=== PATIENT | male | born 1930 | race Caucasian/White ===

== ENCOUNTER → 2020-09-07 | Outpatient (CLI) | payer OTHER ==
--- NOTE | 2020-09-28 14:18 | ECHO ---
DATE OF PROCEDURE: 09/07/2020 Age: 89 Gender: Male PATIENT LOCATION: Outpatient. REASON FOR STUDY: Shortness of breath. 2D MEASUREMENTS: IVS 1.2 cm LV 3.5 cm LVPW 1.2 cm LA 4.1 cm Aorta 3.2 cm IVC 1.5 cm DOPPLER MEASUREMENT Peak velocity across the aortic valve 0.9 m/s Peak velocity across the LVOT 0.7 m/s Mitral E 0.64 Mitral A 0.74 with a ratio of 0.86 2D COMMENTS: 1. Normal left ventricular size, wall thickness, and normal global left ventricular systolic function. The estimated left ventricular systolic ejection fraction is 65 to 70%. 2. Mildly enlarged left atrium. The right atrium and the right ventricle were not well visualized. 3. The atrial septum did not reveal any defect or shunt. 4. Normal aortic root. 5. No pericardial effusion seen. 6. Mildly calcified aortic valve with normal leaflet excursion. Normal mitral valve, tricuspid valve, and pulmonic valve. The proximal pulmonary artery branches were not well visualized. 7. The inferior vena cava was normal in size, central venous pressure was most likely normal. Doppler detects trace aortic regurgitation, mild to moderate mitral regurgitation, and mild pulmonic regurgitation. No significant tricuspid regurgitation detected. Abnormal relaxation pattern was noted across the mitral valve leaflets as well as the mitral valve annulus consistent with features of grade 1 left ventricular diastolic dysfunction. IMPRESSION: 1. Normal global left ventricular systolic function. There were some features of left ventricular diastolic dysfunction manifested by abnormal relaxation. 2. Aortic valve sclerosis with trace aortic regurgitation but no aortic stenosis. 3. Mild to moderate mitral regurgitation. The left atrium is mildly enlarged. 4. Mild pulmonic regurgitation. MTDD
== END ==
LOC: M CARPUL 08:44
DX: R06.02 Shortness of breath (principal); R42 Dizziness and giddiness; I34.0 Nonrheumatic mitral (valve) insufficiency; I37.1 Nonrheumatic pulmonary valve insufficiency

== ENCOUNTER → 2020-10-30 | Outpatient (CLI) | payer OTHER | LOC: M LABSMTC 08:53 | PROVIDERS: ATTEND Anesthesiology | DX: Z01.812 Encounter for preprocedural laboratory examination (principal); Z20.822 Contact with and (suspected) exposure to COVID-19 ==

== ENCOUNTER 2020-11-04 10:50 | Day surgery (SDC) | payer OTHER, MEDICARE ==
[~2020-11-04] VITALS: Ht 170.2 cm; Wt 70.8 kg
[~2020-11-04 10:50] MED LIST: NS 1,000 ML IV ONE
[2020-11-04] MEDS ORDERED: propofoL 200 MG/20 ML VIAL As Ordered ONE (13:52)
[2020-11-04] MEDS ORDERED: LIDOCAINE 2% 100MG/5ML SDV (FOR ANES.) As Ordered ONE (13:53)
[2020-11-04 14:30] VITALS: BP 151/72
--- NOTE | 2020-11-04 14:45 | ROOR ---
Patient Name: Sedrick Roberson Procedure Date: 11/04/2020 1:46 PM Date of : 1930 Age: 89 Room: [facility] Gender: Male Note Status: Finalized Procedure: Upper GI endoscopy Indications: Abnormal CT of the GI tract Providers: Del Chavez MD Referring MD: MARTA Holloway Requesting Provider: Medicines: Monitored Anesthesia Care Complications: No immediate complications. Procedure: Pre-Anesthesia Assessment: - Prior to the procedure, a History and Physical was performed, and patient medications and allergies were reviewed. The patient is competent. The risks and benefits of the procedure and the sedation options and risks were discussed with the patient. All questions were answered and informed consent was obtained. Patient identification and proposed procedure were verified by the physician, the nurse and the anesthesiologist in the procedure room. Mental Status Examination: alert and oriented. Prophylactic Antibiotics: The patient does not require prophylactic antibiotics. Prior Anticoagulants: The patient has taken no previous anticoagulant or antiplatelet agents. ASA Grade Assessment: II - A patient with mild systemic disease. After reviewing the risks and benefits, the patient was deemed in satisfactory condition to undergo the procedure. The anesthesia plan was to use monitored anesthesia care (MAC). Immediately prior to administration of medications, the patient was re-assessed for adequacy to receive sedatives. The heart rate, respiratory rate, oxygen saturations, blood pressure, adequacy of pulmonary ventilation, and response to care were monitored throughout the procedure. The physical status of the patient was re-assessed after the procedure. The Endoscope was introduced through the mouth, and advanced to the second part of duodenum. The upper GI endoscopy was accomplished without difficulty. The patient tolerated the procedure well. Findings: LA Grade A (one or more mucosal breaks less than 5 mm, not extending between tops of 2 mucosal folds) esophagitis with no bleeding was found in the distal esophagus. Biopsies were taken with a cold forceps for histology. Verification of patient identification for the specimen was done by the physician and nurse using the patient's name, date and medical record number. Estimated blood loss was minimal. A large hiatal hernia was present. Evidence of a gastrojejunostomy was found in the gastric body. This was characterized by congestion. Two biopsies were obtained with cold forceps for histology in the gastric body. The examined jejunum was normal. Impression: - LA Grade A reflux esophagitis. Biopsied. - Large hiatal hernia. - A gastrojejunostomy was found, characterized by congestion. - Normal examined jejunum. - Biopsies performed in the gastric body. Recommendation: - Patient has a contact number available for emergencies. The signs and symptoms of potential delayed complications were discussed with the patient. Return to normal activities tomorrow. Written discharge instructions were provided to the patient. - Anti-acid reflux diet -- small meals, sit upright atleast 1 hour after meals, avoid fatty/ oily foods and avoid foods that cause reflux. - Continue present medications. - Use Protonix (pantoprazole) 40 mg PO daily for 8 weeks. - Await pathology results. - Telephone GI clinic for pathology results in 2 weeks. - Follow an antireflux regimen. - Return to primary care physician. Procedure Code(s): --- Professional --- 02523, Esophagogastroduodenoscopy, flexible, transoral; with biopsy, single or multiple Diagnosis Code(s): --- Professional --- K21.0, Gastro-esophageal reflux disease with esophagitis K44.9, Diaphragmatic hernia without obstruction or gangrene Z98.0, Intestinal bypass and anastomosis status R93.3, Abnormal findings on diagnostic imaging of other parts of digestive tract CPT copyright 2019 [employer]. All rights reserved. The codes documented in this report are preliminary and upon cpc coder review may be revised to meet current compliance requirements. Del Chavez MD Del Chavez MD 11/04/2020 2:44:51 PM Electronically signed by Del Chavez MD Number of Addenda: 0 Note Initiated On: 11/04/2020 1:46 PM Estimated Blood Loss: Estimated blood loss was minimal.
== END 2020-11-04 14:53 | disposition home or self-care (01) ==
LOC: M OPP 10:50
PROVIDERS: ATTEND Internal Medicine Gastroenterology
DX: K44.9 Diaphragmatic hernia without obstruction or gangrene (principal); K21.9 Gastro-esophageal reflux disease without esophagitis; Z98.0 Intestinal bypass and anastomosis status; R93.3 Abnormal findings on diagnostic imaging of other parts of digestive tract; Z87.891 Personal history of nicotine dependence